=== PATIENT | male | born 1980 | race Asian ===

== ENCOUNTER 2017-08-10 16:39 | Outpatient (CLI) | payer OTHER ==
--- NOTE | 2017-08-11 06:42 | MRI Report ---
EXAM: MRI CERVICAL SPINE WITHOUT CONTRAST EXAM DATE: 08/10/2017 05:17 PM. CLINICAL HISTORY: CERVICAL PAIN WITH RADICULOPATHY. COMPARISONS: None. TECHNIQUE: Multiplanar, multisequence T1-weighted and fluid-sensitive sequences of the cervical spine without contrast. Other: None. FINDINGS: Neurologic Structures: The visualized posterior fossa structures are unremarkable. No signal abnormal ity in the visualized spinal cord. Alignment: Straightening of the cervical lordosis Bone Marrow: No gross fractures or bone lesions. No marrow edema. Interspace Levels/Facets: C1-C2: Unremarkable. C2-C3: Unremarkable. C3-C4: Disk height is preserved. Loss of T2 signal within the disk. Small central disk protrusion wit hout cord impingement. Disk/endplate osteophyte severely narrows the left foramen, moderate to severe stenosis on the right. C4-C5: Mild disk space narrowing. Left-sided disk herniation mildly impinges on the cervical cord. Fo ramina appear patent. C5-C6: Mild disk space narrowing. Central disk herniation is slightly eccentric to the right. There i s mild cord impingement. Foramina appear patent. C6-C7: Small left-sided disk protrusion on the left. No cord impingement. Mild left-sided foraminal s tenosis. C7-T1: Unremarkable. Musculature: Normal. No edema or fatty atrophy. Other: The paravertebral and prevertebral soft tissues are unremarkable. IMPRESSION: C3-C4: Disk height is preserved. Loss of T2 signal within the disk. Small central disk protrusion wit hout cord impingement. Disk/endplate osteophyte severely narrows the left foramen, moderate to severe stenosis on the right. Correlate with C4 symptoms. C4-C5: Mild disk space narrowing. Left-sided disk herniation mildly impinges on the cervical cord. Co rrelate with C5 symptoms. Foramina appear patent. C5-C6: Mild disk space narrowing. Central disk herniation is slightly eccentric to the right. There i s mild cord impingement. Correlate with right C6 symptoms. Foramina appear patent. C6-C7: Small left-sided disk protrusion on the left. No cord impingement. Mild left-sided foraminal s tenosis. Correlate with left C7 symptoms. [facility] Referring Provider Line: [phone] SITE ID: [id number]
== END 2017-08-10 16:40 | disposition home or self-care (01) ==
LOC: DI 16:39
PROVIDERS: ATTEND Radiology Diagnostic Radiology
DX: M50.11 Cervical disc disorder with radiculopathy, high cervical region (principal); S16.1XXA Strain of muscle, fascia and tendon at neck level, initial encounter
CPT/HCPCS: 72141

== ENCOUNTER 2017-08-24 16:29 | Emergency (ER) | payer OTHER ==
[2017-08-24 16:52] VITALS: BP 114/65
== END 2017-08-24 18:53 | disposition left against medical advice (07) ==
LOC: ED 16:29
DX: Z53.21 Procedure and treatment not carried out due to patient leaving prior to being seen by health care provider (principal)
CPT/HCPCS: 99283

== ENCOUNTER 2017-08-24 20:35 | Emergency (ER) | payer OTHER ==
[2017-08-24 20:44] VITALS: BP 100/69
--- NOTE | 2017-08-24 21:17 | ED Physician Documentation ---
PD HPI LOWER EXT INJURY - Stated complaint Stated Complaint: ANKLE PX - Chief complaint Chief Complaint: Ext Problem - History obtained from History obtained from: Patient - History of Present Illness PD HPI LOW EXT INJURY LOCATION: Both, Ankle Timing - onset: How many weeks ago (6) Timing - duration: Weeks Timing - details: Gradual onset, Intermittant Improved by: Other (ambulation and movement) Similar symptoms before: Work up / diagnostics, Treatment Recently seen: Clinic - Additional information Additional information: Patient is a 36 year old male presenting to the emergency department for ankle pain. Patient states that for the last month he has had intermittent ankle pain. patient states that it is worse in the morning when he wakes up and gets better throughout the day. patient states that he saw his base doctor and had negative x-rays. Patient states that he takes an occasional ibuprofen but hasn' t really needed it. Patient states that he thought he might need an mri. Review of Systems Constitutional: denies: Fever, Chills Eyes: denies: Decreased vision Ears: reports: Reviewed and negative Nose: reports: Reviewed and negative Throat: reports: Reviewed and negative Cardiac: reports: Reviewed and negative Respiratory: reports: Reviewed and negative GI: reports: Reviewed and negative : reports: Reviewed and negative Skin: denies: Rash, Lesions, Abrasion (s) Musculoskeletal: reports: Extremity pain, Joint pain. denies: Extremity swelling, Joint swelling Neurologic: denies: Generalized weakness, Focal weakness, Numbness, Difficulty speaking Immunocompromised: denies: Immunocompromised PD PAST MEDICAL HISTORY - Present Medications Home Medications: Ambulatory Orders Medication Instructions Recorded Confirmed No Known Home Medications [No 08/24/17 08/24/17 Known Home Medications] - Allergies Allergies/Adverse Reactions: Allergies Allergy/AdvReac Type Severity Reaction Status Date / Time No Known Drug Allergies Allergy Verified 08/24/17 20:44 PD ED PE NORMAL - Vitals Vital signs reviewed: Yes - General General: Alert and oriented X 3, No acute distress - HEENT HEENT: Atraumatic, PERRL - Cardiac Cardiac: RRR, No murmur - Respiratory Respiratory: No respiratory distress, Clear bilaterally - Abdomen Abdomen: Non distended - Derm Derm: Normal color, Warm and dry, No rash - Extremities Extremities: No deformity, No tenderness to palpate, Normal ROM s pain, No edema - Neuro Neuro: Alert and oriented X 3, No motor deficit, No sensory deficit - Psych Psych: Normal mood, Normal affect Results - Vitals Vitals: Vital Signs - 24 hr 08/24/17 20:41 Temperature 36.5 C Heart Rate 68 Respiratory 18 Rate Blood Pressure 100/69 O2 Saturation 100 Oxygen O2 Source Room air PD MEDICAL DECISION MAKING - ED course Complexity details: re-evaluated patient, considered differential, d/w patient ED course: Patient was seen and examined at bedside. Patient as in no acute distress and had a normal physical exam. patient stated that he did not need pain medication at this time. Patient required no further emergency work up and was stable for discharge with outpatient follow up. Departure - Departure Disposition: Home, Self Care Clinical Impression: Arthritis Condition: Good Instructions: ED Arthritis Rheumatoid Follow-Up: ODELL JACOBSON [Primary Care Provider] - As Needed Comments: Your symptoms today are likely being caused by arthritis, possibly secondary to increased rheumatoid factor, for which you will need to get a blood check by your pmd. You can take motrin or naproxen as needed for pain and should follow up with your pmd for further evaluation and care. Discharge Date/Time: 08/24/17 21:29
== END 2017-08-24 21:29 | disposition home or self-care (01) ==
LOC: ED 20:35
DX: M19.072 Primary osteoarthritis, left ankle and foot (principal); M19.071 Primary osteoarthritis, right ankle and foot
CPT/HCPCS: 99283

== ENCOUNTER 2017-12-23 14:59 | Emergency (ER) | payer OTHER ==
[2017-12-23 15:13] VITALS: BP 136/72
--- NOTE | 2017-12-23 16:21 | ED Physician Documentation ---
PD HPI MALE - Stated complaint Stated Complaint: MALE - Chief complaint Chief Complaint: General - History obtained from History obtained from: Patient - History of Present Illness Timing - onset: How many weeks ago (1) Timing - duration: Weeks (1) Timing - details: Gradual onset Pain level max: 6 Pain level now: 4 Associated symptoms: Other (L testicular pain) PD HPI MALE CONTRIB FACTORS: Sexually active Similar symptoms before: Has not had sx before Recently seen: Not recently seen - Additional information Additional information: Patient is a 37-year-old male, active [employer] who presents to the emergency department with left-sided testicular pain, states this is been ongoing for approximately 6 months but became worse over the past several days. Has not been seen by a provider for this before. No pain or burning with urination. No discharge. No wounds. No ulcerations. No rashes. Review of Systems Constitutional: denies: Fever, Chills Respiratory: denies: Cough GI: denies: Abdominal Pain, Nausea, Vomiting : denies: Dysuria, Frequency, Hesitancy, Discharge Skin: denies: Rash Musculoskeletal: denies: Neck pain, Back pain Neurologic: denies: Headache PD PAST MEDICAL HISTORY - Past Medical History Cardiovascular: None Respiratory: None Neuro: None Endocrine/Autoimmune: None GI: None : None HEENT: None Psych: None Musculoskeletal: None Derm: None - Past Surgical History Past Surgical History: No - Present Medications Home Medications: Ambulatory Orders Medication Instructions Recorded Confirmed Hydrocodone/Acetaminophen 1 - 2 each PO Q6H PRN #14 tablet 12/23/17 [Hydrocodon-Acetaminophen 5-325] - Allergies Allergies/Adverse Reactions: Allergies Allergy/AdvReac Type Severity Reaction Status Date / Time No Known Drug Allergies Allergy Verified 12/23/17 15:13 - Social History Does the pt smoke?: No Smoking Status: Never smoker Does the pt drink ETOH?: No Does the pt have substance abuse?: No - Immunizations Immunizations are current?: Yes - POLST Patient has POLST: No PD ED PE NORMAL - Vitals Vital signs reviewed: Yes - General General: Alert and oriented X 3, No acute distress - HEENT HEENT: Moist mucous membranes - Neck Neck: Supple, no meningeal sign - Cardiac Cardiac: RRR - Respiratory Respiratory: No respiratory distress, Clear bilaterally - Abdomen Abdomen: Soft, Non tender, Non distended - Male Male : Other (Normal external exam, palpable cystic structure above the left testicle. Otherwise normal exam.) - Derm Derm: Warm and dry - Neuro Neuro: Alert and oriented X 3 Results - Vitals Vitals: Vital Signs - 24 hr 12/23/17 15:11 Temperature 36.5 C Heart Rate 81 Respiratory 16 Rate Blood Pressure 136/72 H O2 Saturation 99 Oxygen O2 Source Room air - Labs Labs: Laboratory Tests 12/23/17 18:15 Urine Color YELLOW Urine Clarity CLEAR Urine pH 6.0 Ur Specific [place] 1.015 Urine Protein NEGATIVE Urine Glucose (UA) NEGATIVE Urine Ketones NEGATIVE Urine Occult Blood NEGATIVE Urine Nitrite NEGATIVE Urine Bilirubin NEGATIVE Urine Urobilinogen 0.2 (NORMAL) Ur Leukocyte Esterase NEGATIVE Ur Microscopic Review NOT INDICATED Urine Culture Comments NOT INDICATED - Rads (name of study) Testicular ultrasound Radiology: Prelim report reviewed, EMP read contemporaneously, See rad report ( No right testicular mass or torsion. No left testicular mass or definitive torsion. However, the left testicle appears to be compressed due to the large cystic structure and results in decreased arterial flow. Arterial and venous flow remain present. Large cystic structure in the left scrotum measuring 4.3 x 2.9 x 3.3 cm. No thickened septations or mural nodules. Differential includes a large loculated hydrocele versus a large epididymal cyst. No right-sided hydrocele. 4. No varicocele. ) PD MEDICAL DECISION MAKING - ED course Complexity details: reviewed results, re-evaluated patient, considered differential, d/w patient, d/w search consultant ED course: Patient is a 37-year-old gentleman who presents to the emergency department with left-sided testicular pain. Appears to have a cystic mass, possibly a loculated hydrocele versus epididymal cyst that is compressing the left testicle and decreasing the blood flow to the testicle. There is still flow arterial and venous in the testicle. Discussed the case with urology at [facility] , Dr. Russell, who will follow-up the patient on Tuesday. Will prescribe pain medication for home and if the patient worsens over the weekend he will return. Patient counseled regarding signs and symptoms for which I believe and urgent re-evaluation would be necessary. Patient with good understanding of and agreement to plan and is comfortable going home at this time This document was made in part using voice recognition software. While efforts are made to proofread this document, sound alike and grammatical errors may occur. CD of US given to patient to take with him. Departure - Departure Disposition: 01 Home, Self Care Clinical Impression: Hydrocele Qualifiers: Hydrocele type: unspecified Qualified Code(s): N43.3 - Hydrocele, unspecified Condition: Good Instructions: ED Hydrocele Type Not Specified Follow-Up: ODELL JACOBSON [Primary Care Provider] - Prescriptions: Hydrocodone/Acetaminophen [Hydrocodon-Acetaminophen 5-325] 1 - 2 each PO Q6H PRN #14 tablet PRN Reason: pain Comments: Dr. Russell (urology) will call on Tuesday to be seen at [facility]. is the urology clinic number. Return if you worsen including uncontrolled pain. They will likely need to perform surgery on this. Take the CD of the ultrasound with you. Do not drink alcohol or drive while on narcotic pain medicine. Note that many narcotic pain relievers also contain tylenol/acetaminophen. Please ensure that your total dose of acetaminophen from all sources does not exceed 3 grams (3000mg) per day. You may constipated on this medication, take a stool softener such as "Colace" twice a day while you are on it. Also recommend a lmfs-kvm-vkhidge laxative such as senna or MiraLAX any day that you do not have a bowel movement. If you received narcotic pain medication in the emergency department, do not drive or operate machinery for the next 24 hours. Discharge Date/Time: 12/23/17 18:54
--- NOTE | 2017-12-23 17:25 | Ultrasound Preliminary Report ---
Exam: US TESTICLE W/DOPPLER IMPRESSION: 1. No right testicular mass or torsion. 2. No left testicular mass or definitive torsion. However, the left testicle appears to be compressed due to the large cystic structure results and decreased arterial flow. Arterial and venous flow sherwin in present. 3. Large cystic structure in the left scrotum measuring 4.3 x 2.9 x 3.3 cm. No thickened septations o r mural nodules. Differential includes large loculated hydrocele versus large epididymal cyst. No rig ht-sided hydrocele. 3. No varicocele. [facility] SITE ID: [id number]
--- NOTE | 2017-12-23 18:09 | Ultrasound Report ---
EXAM: SCROTAL ULTRASOUND EXAM DATE: 12/23/2017 04:49 PM. CLINICAL HISTORY: Left testicle pain. COMPARISON: None. TECHNIQUE: Real-time scanning was performed with static images obtained. Both color-flow and Doppler spectral analysis were utilized. FINDINGS: Right: Testis: 3.9 x 2.1 x 2.5 cm. Normal size and echotexture. No mass, calcification, or abnormal blood fl ow. Epididymis: 2.2 x 0.87 x 1.3 cm. Normal size and echotexture. No mass or abnormal blood flow. Hydrocele: None. Varicocele: None. Left: Testis: 2.9 x 2.3 x 2.9 cm. No mass, abnormal echotexture or calcifications are noted. Overall, the l eft testicle appears mildly compressed and the flow appears decreased. However, arterial and venous f low appears to be present. Epididymis: 4.1 x 2.4 x 1.1 cm. Normal size and echotexture. No mass or abnormal blood flow. Hydrocele: See below. Varicocele: None. Additional findings: A large anechoic cystic structure measuring 4.3 x 2.9 x 3.3 cm resulting in sign ificant compression and mass-effect upon the adjacent epididymis and testicle. Differential considera tions include a large loculated hydrocele versus a large epididymal cyst. No mass, nodule or thickene d septations are noted. No significant debris. IMPRESSION: 1. No right testicular mass or torsion. 2. No left testicular mass or definitive torsion. However, the left testicle appears to be compressed due to the large cystic structure and results in decreased arterial flow. Arterial and venous flow r emain present. 3. Large cystic structure in the left scrotum measuring 4.3 x 2.9 x 3.3 cm. No thickened septations o r mural nodules. Differential includes a large loculated hydrocele versus a large epididymal cyst. No right-sided hydrocele. 4. No varicocele. [facility] Referring Provider Line: [phone] SITE ID: [id number]
[2017-12-23 18:45] LABS: BILIRUBIN,URINE NEGATIVE (NEGATIVE); GLUCOSE, URINE (UA) NEGATIVE (NEGATIVE); KETONES,URINE (UA) NEGATIVE (NEGATIVE); LEUKOCYTE ESTERASE, URINE NEGATIVE (NEGATIVE); NITRITE,URINE NEGATIVE (NEGATIVE); OCCULT BLOOD,URINE NEGATIVE (NEGATIVE); PROTEIN,URINE NEGATIVE (NEGATIVE); UROBILINOGEN,URINE 0.2 (NORMAL) E.U./dL (NORMAL)
[2017-12-23 18:46] LABS: CLARITY,URINE CLEAR (CLEAR)
== END 2017-12-23 18:54 | disposition home or self-care (01) ==
LOC: ED 14:59
DX: N43.3 Hydrocele, unspecified (principal)
CPT/HCPCS: 76870; 81001; 81003; 87086; 93975; 99283; 99284

== ENCOUNTER 2018-10-14 16:44 | Emergency (ER) | payer OTHER ==
[2018-10-14 18:11] LABS: BASOPHILS # (AUTO) 0.1 10^3/uL (0.0-0.1); BASOPHILS % (AUTO) 0.8 %; EOSINOPHILS # (AUTO) 0.1 10^3/uL (0.0-0.7); EOSINOPHILS % (AUTO) 2.2 %; HGB - HEMOGLOBIN 16.4 g/dL (14.0-18.0); LYMPHOCYTES # (AUTO) 2.6 10^3/uL (1.5-3.5); LYMPHOCYTES % (AUTO) 40.2 %; MEAN CORPUSCULAR HEMOGLOBIN 28.8 pg (27.0-31.0); MEAN CORPUSCULAR VOLUME 87.1 fL (80.0-94.0); MEAN PLATELET VOLUME 8.4 fL (7.4-11.4); MONOCYTES # (AUTO) 0.5 10^3/uL (0.0-1.0); MONOCYTES % (AUTO) 7.7 %; NEUTROPHILS # (AUTO) 3.1 10^3/uL (1.5-6.6); NEUTROPHILS % (AUTO) 49.1 %; PLT - PLATELET COUNT 212 10^3/uL (130-450); RED BLOOD COUNT 5.69 10^6/uL (4.70-6.10); RED CELL DISTRIBUTION WIDTH 13.2 % (12.0-15.0); WHITE BLOOD COUNT 6.4 x10^3/uL (4.8-10.8)
--- NOTE | 2018-10-14 18:13 | ED Physician Documentation ---
PD HPI GI BLEED - Stated complaint Stated Complaint: BLOODY STOOL - Chief complaint Chief Complaint: Abd Pain - History obtained from History obtained from: Patient - History of Present Illness Timing - onset: Chronic Timing - duration: Months (6) Timing - details: Gradual onset, Still present, Intermittant Pain level max: 0 Pain level now: 0 Associated symptoms: No: Vomiting, Coffee ground emesis, Hematemesis, Maroon stool, Black/tarry stool, Diarrhea, Constipation, Abdominal pain, Fever, Dizzy, Near syncope / syncope, Loss of appetite Contributing factors: NSAID use. No: Sick contact, Bad food, Travel, Recent antibiotics, Alcohol use, Anticoagulated, Diabetes Improved by: Other (Nothing) Worsened by: Other (Nothing) Recently seen: Not recently seen - Additional information Additional information: 38-year-old male with history of neck and back pain related to herniated disc here with complaint of rectal bleeding the past 6 months intermittently which had gotten worse the past few days especially today. Patient states it is red blood in the toilet bowl and when he wipes. Denies any black stool or abdominal pain. Patient states he takes Motrin 1-2 times per day for his chronic back and neck pain. Review of Systems Ten Systems: 10 systems reviewed and negative Constitutional: denies: Fever, Chills GI: denies: Abdominal Pain, Nausea, Vomiting, Constipation, Diarrhea, Hematemesis, Bloody / black stool : denies: Hematuria Musculoskeletal: reports: Neck pain (Chronic), Back pain (Chronic). denies: Extremity pain Neurologic: denies: Generalized weakness, Numbness, Near syncope, Syncope PD PAST MEDICAL HISTORY - Past Medical History Past Medical History: No Cardiovascular: None Respiratory: None Endocrine/Autoimmune: None GI: None : None HEENT: None Psych: None Musculoskeletal: None Derm: None - Past Surgical History Past Surgical History: No - Present Medications Home Medications: Ambulatory Orders Medication Instructions Recorded Confirmed Gabapentin TID 10/14/18 - Allergies Allergies/Adverse Reactions: Allergies Allergy/AdvReac Type Severity Reaction Status Date / Time No Known Drug Allergies Allergy Verified 10/14/18 16:54 - Social History Does the pt smoke?: No Smoking Status: Never smoker Does the pt drink ETOH?: No Does the pt have substance abuse?: No - Immunizations Immunizations are current?: Yes - POLST Patient has POLST: No PD ED PE NORMAL - Vitals Vital signs reviewed: Yes - General General: Alert and oriented X 3, No acute distress, Well developed/nourished - HEENT HEENT: EOMI, Moist mucous membranes - Neck Neck: Supple, no meningeal sign - Cardiac Cardiac: RRR, No murmur - Respiratory Respiratory: No respiratory distress, Clear bilaterally - Abdomen Abdomen: Normal bowel sounds, Soft, Non tender, Non distended - Rectal Rectal: Other (No external hemorrhoids. No anal fissure. Rectal examNontender, no mass no stool in the vault. Pinkish mucus acquired which is positive Hemoccult.I was chaperoned by the nurse.) - Back Back: No CVA TTP - Derm Derm: Normal color, Warm and dry, No rash - Extremities Extremities: No deformity - Neuro Neuro: Alert and oriented X 3 - Psych Psych: Normal mood, Normal affect Results - Vitals Vitals: Vital Signs - 24 hr 10/14/18 16:52 Temperature 36.5 C Heart Rate 67 Respiratory 16 Rate Blood Pressure 136/63 H O2 Saturation 99 Oxygen O2 Source Room air - Labs Labs: Laboratory Tests 10/14/18 18:05 WBC 6.4 RBC 5.69 Hgb 16.4 Hct 49.6 MCV 87.1 MCH 28.8 MCHC 33.0 RDW 13.2 Plt Count 212 MPV 8.4 Neut # (Auto) 3.1 Lymph # (Auto) 2.6 [place] # (Auto) 0.5 Eos # (Auto) 0.1 Baso # (Auto) 0.1 Absolute Nucleated RBC 0.01 Nucleated RBC % 0.1 PD MEDICAL DECISION MAKING - ED course Complexity details: reviewed results, re-evaluated patient ([id number] sitting the chair in no acute distress and nontoxic looking. No further rectal bleeding in the ER. Inform of test results. Instructed to follow-up with primary doctor and get a referral to a GI doctor for further workup such as colonoscopy. Patient expressed understanding of outpatient follow-up.), considered differential (Hemorrhoids, anal fissure, polyps, diverticulosis), d/w patient Departure - Departure Disposition: 01 Home, Self Care Clinical Impression: Rectal bleeding Condition: Stable Instructions: Bleeding Rectal Comments: Follow-up with your primary doctor for reevaluation and referral to a countersinker for outpatient workup such as colonoscopy. If worse return to the emergency room.
[2018-10-14 19:32] VITALS: BP 138/76
== END 2018-10-14 19:43 | disposition home or self-care (01) ==
LOC: ED 16:44
DX: K62.5 Hemorrhage of anus and rectum (principal); G89.29 Other chronic pain
CPT/HCPCS: 36415; 85025; 99283

== ENCOUNTER 2018-10-30 11:57 | Emergency (ER) | payer OTHER ==
[2018-10-30 12:48] LABS: BASOPHILS # (AUTO) 0.1 10^3/uL (0.0-0.1); EOSINOPHILS # (AUTO) 0.1 10^3/uL (0.0-0.7); EOSINOPHILS % (AUTO) 1.5 %; HGB - HEMOGLOBIN 16.1 g/dL (14.0-18.0); LYMPHOCYTES # (AUTO) 1.9 10^3/uL (1.5-3.5); MEAN CORPUSCULAR HEMOGLOBIN 29.4 pg (27.0-31.0); MEAN CORPUSCULAR HGB CONC 34.5 g/dL (32.0-36.0); MEAN CORPUSCULAR VOLUME 85.3 fL (80.0-94.0); MEAN PLATELET VOLUME 8.1 fL (7.4-11.4); MONOCYTES # (AUTO) 0.4 10^3/uL (0.0-1.0); MONOCYTES % (AUTO) 6.5 %; NEUTROPHILS # (AUTO) 3.6 10^3/uL (1.5-6.6); PLT - PLATELET COUNT 232 10^3/uL (130-450); RED BLOOD COUNT 5.48 10^6/uL (4.70-6.10); RED CELL DISTRIBUTION WIDTH 13.2 % (12.0-15.0); WHITE BLOOD COUNT 6.1 x10^3/uL (4.8-10.8)
[2018-10-30 13:01] LABS: ALBUMIN 4.7 g/dL (3.2-5.5); ALBUMIN/GLOBULIN RATIO 1.4 (1.0-2.2); BILIRUBIN,TOTAL 0.9 mg/dL (0.2-1.0); CALCIUM 9.3 mg/dL (8.5-10.3); TOTAL PROTEIN 8.1 g/dL (6.7-8.2)
--- NOTE | 2018-10-30 13:22 | XRAY Report ---
Reason: chest pain Procedure Date: 10/30/2018 Accession Number: [id number] / [id number] Procedure: XR - Chest 1 View X-Ray CPT Code: 45035 FULL RESULT: EXAM: CHEST RADIOGRAPHY EXAM DATE: 10/30/2018 12:23 PM. CLINICAL HISTORY: Chest pain. COMPARISON: None. TECHNIQUE: 1 view. FINDINGS: Lungs/Pleura: No focal opacities evident. No pleural effusion. No pneumothorax. Mediastinum: Within exam limitations, the cardiomediastinal contour is normal. Other: None. IMPRESSION: Normal single view chest. [facility]
--- NOTE | 2018-10-30 13:22 | ED Physician Documentation ---
History of Present Illness - Stated complaint Stated Complaint: CHEST PX - Chief complaint Chief Complaint: General - Additonal information Additional information: 38-year-old male presents the emergency department with epigastric pain which radiates up into his chest. The patient reports a burning sensation that goes into his chest for the past day. The patient's symptoms started last night. The patient has had ongoing epigastric issues and currently was started on omeprazole. The patient denies dyspnea on exertion, shortness of breath, URI symptoms or chest wall injury. Symptoms are described as moderate. No triggering factors. No relieving factors. Symptoms are described as moderate. No other associated symptoms Review of Systems Constitutional: denies: Fever, Chills Eyes: denies: Discharge Ears: denies: Ear pain Nose: denies: Congestion Throat: denies: Sore throat Cardiac: reports: Chest pain / pressure Respiratory: denies: Cough GI: reports: Abdominal Pain, Nausea. denies: Vomiting : denies: Dysuria Skin: denies: Rash Musculoskeletal: denies: Back pain Neurologic: denies: Generalized weakness Immunocompromised: denies: Chemotherapy PD PAST MEDICAL HISTORY - Past Medical History Cardiovascular: None Respiratory: None Endocrine/Autoimmune: None GI: None : None HEENT: None Psych: None Musculoskeletal: None Derm: None - Past Surgical History Past Surgical History: No - Present Medications Home Medications: Ambulatory Orders Medication Instructions Recorded Confirmed Gabapentin TID 10/14/18 Omeprazole 20 mg PO 10/30/18 - Allergies Allergies/Adverse Reactions: Allergies Allergy/AdvReac Type Severity Reaction Status Date / Time No Known Drug Allergies Allergy Verified 10/14/18 16:54 - Social History Does the pt smoke?: No Smoking Status: Never smoker Does the pt drink ETOH?: No Does the pt have substance abuse?: No - Immunizations Immunizations are current?: Yes - POLST Patient has POLST: No PD ED PE NORMAL - General General: Alert and oriented X 3, No acute distress - HEENT HEENT: Atraumatic, PERRL, EOMI, Ears normal - Neck Neck: Supple, no meningeal sign - Cardiac Cardiac: RRR, Strong equal pulses - Respiratory Respiratory: No respiratory distress, Clear bilaterally - Abdomen Abdomen: Soft, Non tender, Non distended - Derm Derm: Normal color - Extremities Extremities: No deformity - Neuro Neuro: Alert and oriented X 3, Normal speech - Psych Psych: Normal affect Results - Vitals Vitals: Vital Signs - 24 hr 10/30/18 10/30/18 12:06 15:10 Temperature 36.1 C L Heart Rate 77 62 Respiratory 16 16 Rate Blood Pressure 116/62 110/72 O2 Saturation 100 100 Oxygen O2 Source Room air - EKG (time done) 12:06 Rate: Rate (enter#) Rhythm: NSR [place]: Normal Intervals: Normal LA QRS: Normal Ischemia: Non specific changes Compare to prior EKG: Old EKG unavailable - Labs Labs: Laboratory Tests 10/30/18 10/30/18 10/30/18 12:42 12:42 12:42 WBC 6.1 RBC 5.48 Hgb 16.1 Hct 46.7 MCV 85.3 MCH 29.4 MCHC 34.5 RDW 13.2 Plt Count 232 MPV 8.1 Neut # (Auto) 3.6 Lymph # (Auto) 1.9 [place] # (Auto) 0.4 Eos # (Auto) 0.1 Baso # (Auto) 0.1 Absolute Nucleated RBC 0.01 Nucleated RBC % 0.2 Sodium 136 Potassium 3.6 Chloride 101 Carbon Dioxide 30 Anion Gap 5.0 L BUN 11 Creatinine 1.0 Estimated GFR (MDRD) 85 L Glucose 90 Calcium 9.3 Total Bilirubin 0.9 AST 24 ALT 26 Alkaline Phosphatase 51 Troponin I < 0.04 Total Protein 8.1 Albumin 4.7 Globulin 3.4 Albumin/Globulin Ratio 1.4 Lipase 26 10/30/18 15:10 WBC RBC Hgb Hct MCV MCH MCHC RDW Plt Count MPV Neut # (Auto) Lymph # (Auto) [place] # (Auto) Eos # (Auto) Baso # (Auto) Absolute Nucleated RBC Nucleated RBC % Sodium Potassium Chloride Carbon Dioxide Anion Gap BUN Creatinine Estimated GFR (MDRD) Glucose Calcium Total Bilirubin AST ALT Alkaline Phosphatase Troponin I < 0.04 Total Protein Albumin Globulin Albumin/Globulin Ratio Lipase - Rads (name of study) CXR Radiology: Final report received (IMPRESSION: Normal single view chest. ), See rad report PD MEDICAL DECISION MAKING - ED course ED course: The patient's symptoms are more consistent with a gastric etiology. Acute coronary syndrome was considered and the patient's EKG and 2 troponins were both negative. The patient is negative for both the [place] and PERC score and pulmonary embolism is highly unlikely given his symptoms. The patient appears appropriate for discharge, the patient had resolution of his symptoms with a GI cocktail. The patient appears appropriate for discharge and ongoing outpatient management. The patient is in the process of getting a referral to gastroenterology to further assess his ongoing epigastric pain. I discussed warning signs and recommended returning for any worsening or any concerns. Departure - Departure Disposition: Home, Self Care Clinical Impression: Chest pain Qualifiers: Chest pain type: unspecified Qualified Code(s): R07.9 - Chest pain, unspecified Condition: Good Instructions: ED Chest Pain [facility] Follow-Up: BEBETO Bobby [Provider Group] - Within 3 Days (Please ask your primary care physician to arrange for an outpatient referral to GI to further assess your symptoms. ) Comments: Please return to the emergency department for worsening symptoms or any concerns.
[2018-10-30] MEDS ORDERED: MAG HYDROX/AL HYDROX/SIMETH 30 ML UDC PO STA (13:57)
[2018-10-30] MEDS ORDERED: LIDOCAINE VISCOUS 2% 15 ML UDC MM STA (13:58)
[2018-10-30 16:29] VITALS: BP 115/70
== END 2018-10-30 16:34 | disposition home or self-care (01) ==
LOC: ED 11:57
DX: R07.9 Chest pain, unspecified (principal)
CPT/HCPCS: 36415; 71045; 80053; 83690; 84484; 85025; 93005; 99283; A9270

== ENCOUNTER 2019-03-23 19:47 | Emergency (ER) | payer OTHER ==
[2019-03-23 20:13] LABS: BILIRUBIN,URINE NEGATIVE (NEGATIVE); GLUCOSE, URINE (UA) NEGATIVE (NEGATIVE); KETONES,URINE (UA) NEGATIVE (NEGATIVE); LEUKOCYTE ESTERASE, URINE NEGATIVE (NEGATIVE); NITRITE,URINE NEGATIVE (NEGATIVE); OCCULT BLOOD,URINE TRACE-LYSE (NEGATIVE); PROTEIN,URINE NEGATIVE (NEGATIVE); UROBILINOGEN,URINE 0.2 (NORMAL) E.U./dL (NORMAL)
[2019-03-23 20:17] LABS: CLARITY,URINE CLEAR (CLEAR)
--- NOTE | 2019-03-23 20:45 | ED Physician Documentation ---
PD HPI MALE - Stated complaint Stated Complaint: MALE - Chief complaint Chief Complaint: Abd Pain - History obtained from History obtained from: Patient - History of Present Illness Timing - onset: How many days ago (2) Timing - duration: Days (2) Timing - details: Gradual onset Pain level max: 8 Pain level now: 6 Associated symptoms: Testiclar pain (Left greater than right). No: Dysuria, Urinary frequency, Unable to urinate, Hematuria, Discharge, Genital sore / lesio n, Scrotal swelling, Abdominal pain PD HPI MALE CONTRIB FACTORS: Other (No changes in sexual partners. No STD exposure. States he has been having erectile dysfunction for the last 3 to 4 months. Has a history of a hydrocele on the left. States that urology wanted to repair this but he did not want it repaired at that time.) Recently seen: Not recently seen Review of Systems Constitutional: denies: Fever, Chills Cardiac: denies: Chest pain / pressure Respiratory: denies: Cough GI: denies: Vomiting, Diarrhea : denies: Dysuria, Frequency, Hesitancy, Incontinent Skin: denies: Rash Musculoskeletal: reports: Back pain (Patient has low back pain that radiates around the back to the right groin. This is the low back. He has been told he has sciatica. It also radiates down the right leg. No incontinence. No saddle anesthesia). denies: Neck pain PD PAST MEDICAL HISTORY - Past Medical History Past Medical History: Yes Cardiovascular: None Respiratory: None Neuro: None Endocrine/Autoimmune: None GI: None : None HEENT: None Psych: None Musculoskeletal: None Derm: None Other Past Medical History: hydrocele of left testicle - Past Surgical History Past Surgical History: No - Present Medications Home Medications: Ambulatory Orders Medication Instructions Recorded Confirmed Gabapentin TID 10/14/18 Omeprazole 20 mg PO 10/30/18 Ibuprofen [Motrin] 800 mg PO Q8H PRN #30 tablet 03/23/19 - Allergies Allergies/Adverse Reactions: Allergies Allergy/AdvReac Type Severity Reaction Status Date / Time No Known Drug Allergies Allergy Verified 03/23/19 19:53 - Social History Does the pt smoke?: No Smoking Status: Never smoker Does the pt drink ETOH?: No Does the pt have substance abuse?: No - Immunizations Immunizations are current?: Yes - POLST Patient has POLST: No PD ED PE NORMAL - Vitals Vital signs reviewed: Yes - General General: Alert and oriented X 3, No acute distress - HEENT HEENT: Moist mucous membranes - Neck Neck: Supple, no meningeal sign - Cardiac Cardiac: RRR, Strong equal pulses - Respiratory Respiratory: No respiratory distress, Clear bilaterally - Abdomen Abdomen: Soft, Non tender, Non distended - Male Male : Other (Normal genital exam. No testicular swelling or tenderness. Normal lie. No discharge from penis.) - Back Back: No spinal TTP - Derm Derm: Warm and dry - Neuro Neuro: Alert and oriented X 3 - Psych Psych: Normal mood Results - Vitals Vitals: Vital Signs - 24 hr 03/23/19 03/23/19 19:51 21:36 Temperature 36.7 C Heart Rate 76 69 Respiratory 18 16 Rate Blood Pressure 143/89 H 116/98 H O2 Saturation 99 100 Oxygen O2 Source Room air - Labs Labs: Laboratory Tests 03/23/19 19:56 Urine Color LT. YELLOW Urine Clarity CLEAR Urine pH 6.0 Ur Specific [place] 1.010 Urine Protein NEGATIVE Urine Glucose (UA) NEGATIVE Urine Ketones NEGATIVE Urine Occult Blood TRACE-LYSE Urine Nitrite NEGATIVE Urine Bilirubin NEGATIVE Urine Urobilinogen 0.2 (NORMAL) Ur Leukocyte Esterase NEGATIVE Ur Microscopic Review NOT INDICATED Urine Culture Comments NOT INDICATED - Rads (name of study) testicular US Radiology: Prelim report reviewed, EMP read contemporaneously, See rad report (No evidence of testicular mass, torsion or epididymoorchitis. 2. Stable large left paratesticular cystic mass. This may represent a loculated hydrocele or spermatocele. ) PD MEDICAL DECISION MAKING - ED course Complexity details: reviewed old records, reviewed results, re-evaluated patient, considered differential, d/w patient ED course: 38-year-old male with a stable large left paratesticular cystic mass, possible loculated hydrocele or spermatocele. This is likely causing the left-sided pain. The right-sided pain may be from sciatica has also radiates down the leg and from the back. No evidence of ureterolithiasis. Patient is well-appearing, nontoxic. Will follow up with his doctor for further care. Patient counseled regarding signs and symptoms for which I believe and urgent re-evaluation would be necessary. Patient with good understanding of and agreement to plan and is comfortable going home at this time This document was made in part using voice recognition software. While efforts are made to proofread this document, sound alike and grammatical errors may occur. Departure - Departure Disposition: 01 Home, Self Care Clinical Impression: Hydrocele Qualifiers: Hydrocele type: unspecified Qualified Code(s): N43.3 - Hydrocele, unspecified Condition: Good Instructions: ED Hydrocele Non Communicating Type Follow-Up: ODELL JACOBSON [Primary Care Provider] - Within 1 week Prescriptions: Ibuprofen [Motrin] 800 mg PO Q8H PRN #30 tablet PRN Reason: PAIN &/OR FEVER Comments: Follow-up with your doctor for further care. You will need to see urology to discuss management of the hydrocele. Discharge Date/Time: 03/23/19 21:50
[2019-03-23] MEDS ORDERED: IBUPROFEN 800 MG TABLET PO STA (21:28)
[2019-03-23 21:37] VITALS: BP 116/98
--- NOTE | 2019-03-23 21:40 | Ultrasound Report ---
Reason: B testicular pain x 2 days Procedure Date: 03/23/2019 Accession Number: [id number] / [id number] Procedure: US - Testicle w/Doppler CPT Code: FULL RESULT: EXAM: SCROTAL ULTRASOUND EXAM DATE: 03/23/2019 09:29 PM. CLINICAL HISTORY: Bilateral testicular pain x 2 days. COMPARISON: TESTICLE W/DOPPLER 12/23/2017 4:14 PM. TECHNIQUE: Real-time scanning was performed with static images obtained. Color-flow images were utilized. FINDINGS: Right: Testis: 3.8 x 2.3 x 2.6 cm. Normal size and echotexture. No mass, calcification, or abnormal blood flow. Epididymis: 0.9 x 0.7 x 0.8 cm. Normal size and echotexture. No mass or abnormal blood flow. Hydrocele: None. Varicocele: None. Left: Testis: 3.1 x 1.8 x 2.7 cm. Normal size and echotexture. No mass, calcification, or abnormal blood flow. Epididymis: 1.0 x 0.8 x 1.0 cm. Normal size and echotexture. Again seen is a 4.6 x 1.2 x 4.1 cm loculated fluid collection lateral to the epididymis and testicle. No solid or hypervascular components. This previously measured 4.3 x 2.9 x 3.3 cm. Hydrocele: None. Varicocele: None. IMPRESSION: 1. No evidence of testicular mass, torsion or epididymoorchitis. 2. Stable large left paratesticular cystic mass. This may represent a loculated hydrocele or spermatocele. RADIA
== END 2019-03-23 21:50 | disposition home or self-care (01) ==
LOC: ED 19:47
DX: N43.3 Hydrocele, unspecified (principal); M54.41 Lumbago with sciatica, right side; N52.9 Male erectile dysfunction, unspecified
CPT/HCPCS: 76870; 81003; 93975; 99283; A9270; 81001; 87086

== ENCOUNTER 2019-06-06 20:40 | Emergency (ER) | payer OTHER ==
--- NOTE | 2019-06-06 22:56 | ED Physician Documentation ---
History of Present Illness - Stated complaint Stated Complaint: GROIN ITCHING - Chief complaint Chief Complaint: General - History obtained from History obtained from: Patient - History of Present Illness Timing: Other (6 months) - Additonal information Additional information: This is a 38-year-old who presents with complaints that he has had an itchy sensation around his scrotum groin and anus for the past 6 months intermittently. Occasionally it will get a little bit red. He is also had a history of athlete's foot that he uses a spray on and at times his elbows get very itchy although he can see a rash there either. The only thing that helps his symptoms is to use hot water. 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 Denies diabetes. Review of Systems Constitutional: denies: Fever Skin: denies: Rash Endocrine: reports: Other (Denies diabetes) PD PAST MEDICAL HISTORY - Past Medical History Past Medical History: No Cardiovascular: None Respiratory: None Neuro: None Endocrine/Autoimmune: None GI: None : None HEENT: None Psych: None Musculoskeletal: None Derm: None - Past Surgical History Past Surgical History: No - Present Medications Home Medications: Ambulatory Orders Medication Instructions Recorded Confirmed Gabapentin TID 10/14/18 Ciclopirox 45 gm TP 1-2XD #45 gel..gram. 06/06/19 - Allergies Allergies/Adverse Reactions: Allergies Allergy/AdvReac Type Severity Reaction Status Date / Time No Known Drug Allergies Allergy Verified 03/23/19 19:53 - Social History Does the pt smoke?: No Smoking Status: Never smoker Does the pt drink ETOH?: No Does the pt have substance abuse?: No - Immunizations Immunizations are current?: Yes - POLST Patient has POLST: No PD ED PE NORMAL - Vitals Vital signs reviewed: Yes - General General: Alert and oriented X 3 - HEENT HEENT: Atraumatic - Cardiac Cardiac: RRR - Respiratory Respiratory: No respiratory distress - Derm Derm: Other (There is some hyperpigmentation on the groin region but no erythema or exudate. The scrotum and the perianal region did not appear to be inflamed. His elbows are normal. There is some scaling of the skin on his toes just distal to the nails.) - Neuro Neuro: Alert and oriented X 3, Normal speech - Psych Psych: Normal mood, Normal affect Results - Vitals Vitals: Vital Signs - 24 hr 06/06/19 20:49 Temperature 37 C Heart Rate 82 Respiratory 20 Rate Blood Pressure 124/62 O2 Saturation 97 Oxygen O2 Source Room air PD MEDICAL DECISION MAKING - ED course ED course: Patient does not have current obvious fungal infection except the skin peeling on his toes. Sounds like this is an intermittent problem anyway plan to treat with an antifungal and have him follow-up with dermatology if his symptoms are not improving. Departure - Departure Disposition: 01 Home, Self Care Clinical Impression: Tinea corporis Condition: Good Instructions: ED Kenny Itch Infec Fungal Prescriptions: Ciclopirox 45 gm TP 1-2XD #45 gel..gram. Comments: Keep the areas that are itchy as dry as possible. Minimize exposure to water. You can use the cream in the groin to see if that will alleviate the symptoms. If they persist I would recommend follow-up with a hand cutter apprentice.
[2019-06-06 23:10] VITALS: BP 130/84
== END 2019-06-06 23:10 | disposition home or self-care (01) ==
LOC: ED 20:40
DX: B35.4 Tinea corporis (principal)
CPT/HCPCS: 99282; 99284

== ENCOUNTER 2019-06-07 10:10 | Outpatient (CLI) | payer OTHER ==
--- NOTE | 2019-06-08 10:11 | MRI Report ---
Reason: PAIN IN UNSPECIFIED FOOT Procedure Date: 06/07/2019 Accession Number: [id number] / [id number] Procedure: MRI - Foot RT W/O CPT Code: FULL RESULT: EXAM: RIGHT ANKLE/HINDFOOT MRI WITHOUT CONTRAST EXAM DATE: 06/07/2019 11:01 AM. CLINICAL HISTORY: Pain in unspecified foot. COMPARISON: None. TECHNIQUE: Multiplanar, multisequence T1-weighted and fluid-sensitive sequences of the ankle/hindfoot without contrast. Other: None. FINDINGS: Bones: No fractures or subluxations. No marrow edema. No bone lesions. Articular Cartilage: Unremarkable. Ligaments: The anterior and posterior tibiofibular, anterior and posterior talofibular, and calcaneofibular ligaments are intact. The deep and superficial deltoid and spring ligaments are intact. Anterior Tendons: The tibialis anterior, extensor hallucis longus, and extensor digitorum longus tendons are unremarkable. Medial Tendons: The tibialis posterior, flexor digitorum longus, and flexor hallucis longus tendons are unremarkable. Lateral Tendons: The peroneus brevis and longus are unremarkable. Achilles Tendon: There is linear, increased T2 signal in the anterior most margin of the Achilles tendon without surrounding degenerative change. The findings may indicate a low-grade partial-thickness tear. It measures 2 mm in anteroposterior diameter. Musculature: No edema or fatty atrophy. Other: No effusions. The contents of the sinus tarsi and tarsal tunnel are unremarkable. No plantar fasciitis. The subcutaneous tissues are unremarkable. IMPRESSION: 1. Minimal signal intensity change in the Achilles tendon which may indicate a small partial thickness tear. 2. No other significant abnormality. RADIA
== END 2019-06-07 10:11 | disposition home or self-care (01) ==
LOC: DI 10:10
PROVIDERS: ATTEND Physician Assistant
DX: M79.671 Pain in right foot (principal)

== ENCOUNTER 2020-01-01 17:53 | Emergency (ER) | payer OTHER ==
[2020-01-01 18:02] VITALS: BP 124/74
--- NOTE | 2020-01-01 18:18 | ED Physician Documentation ---
History of Present Illness - Stated complaint Stated Complaint: MOUTH/THROAT PAIN - Chief complaint Chief Complaint: Heent - History obtained from History obtained from: Patient - History of Present Illness Timing: How many days ago (5) Pain level max: 4 Pain level now: 3 - Additonal information Additional information: 39-year-old male presents to the emergency department stating that he has sores inside his mouth for the past 4 to 5 days. No fever. Nothing makes it better or worse. They are painful. Has had this happen sporadically in the past, normally resolves in 1 to 2 days. No sore throat. No vomiting. Review of Systems Constitutional: denies: Fever, Chills Nose: denies: Rhinorrhea / runny nose, Congestion Throat: denies: Sore throat Respiratory: denies: Cough Skin: denies: Rash Musculoskeletal: denies: Neck pain, Back pain Neurologic: denies: Headache PD PAST MEDICAL HISTORY - Past Medical History Cardiovascular: None Respiratory: None Neuro: None Endocrine/Autoimmune: None GI: None : None HEENT: None Psych: None Musculoskeletal: None Derm: None - Past Surgical History Past Surgical History: No - Present Medications Home Medications: Ambulatory Orders Medication Instructions Recorded Confirmed Gabapentin TID 10/14/18 Ciclopirox 45 gm TP 1-2XD #45 gel..gram. 06/06/19 Valacyclovir HCl [Valacyclovir] 2,000 mg PO BID #4 tablet 01/01/20 - Allergies Allergies/Adverse Reactions: Allergies Allergy/AdvReac Type Severity Reaction Status Date / Time No Known Drug Allergies Allergy Verified 01/01/20 17:59 - Social History Does the pt smoke?: No Smoking Status: Never smoker Does the pt drink ETOH?: No Does the pt have substance abuse?: No - Immunizations Immunizations are current?: Yes - POLST Patient has POLST: No PD ED PE NORMAL - Vitals Vital signs reviewed: Yes - General General: Alert and oriented X 3, No acute distress - HEENT HEENT: Moist mucous membranes, Other (Small ulcerations on the inner lower and upper lips. Normal posterior pharyngeal exam. Normal tongue.) - Neck Neck: Supple, no meningeal sign, No adenopathy - Cardiac Cardiac: RRR - Respiratory Respiratory: No respiratory distress, Clear bilaterally - Derm Derm: Warm and dry - Neuro Neuro: Alert and oriented X 3 Results - Vitals Vitals: Vital Signs - 24 hr 01/01/20 17:59 Temperature 36.6 C Heart Rate 73 Respiratory 14 Rate Blood Pressure 124/74 O2 Saturation 100 Oxygen O2 Source Room air PD MEDICAL DECISION MAKING - ED course Complexity details: considered differential, d/w patient ED course: Patient appears to have herpes labialis. Will treat with Valtrex. Patient counseled regarding signs and symptoms for which I believe and urgent re- evaluation would be necessary. Patient with good understanding of and agreement to plan and is comfortable going home at this time This document was made in part using voice recognition software. While efforts are made to proofread this document, sound alike and grammatical errors may occur. Departure - Departure Disposition: 01 Home, Self Care Clinical Impression: Herpes labialis Condition: Good Instructions: ED Herpes Simplex Virus Type 1 Follow-Up: BRIAN BATEMAN [Primary Care Provider] - Within 1 week Prescriptions: Valacyclovir HCl [Valacyclovir] 2,000 mg PO BID #4 tablet Comments: Take the valacyclovir 2 g twice a day for 1 day. Return if you worsen. This should improve over the next few days.
== END 2020-01-01 18:40 | disposition home or self-care (01) ==
LOC: ED 17:53
DX: B00.1 Herpesviral vesicular dermatitis (principal)
CPT/HCPCS: 99282; 99284